=== PATIENT | female | born 1940 ===

== ENCOUNTER 2016-11-21 07:12 | Day surgery (SDC) | payer MEDICARE, OTHER ==
[2016-11-21 07:41] VITALS: BMI 23.3
--- NOTE | 2016-11-21 09:09 | CP.SDSHP ---
Same Day Surgery H & P - History Proposed Procedure: Screening colonoscopy Pre-Op Diagnosis: Screening for colon cancer - Previous Medical/Surgical History Cardiac: Hypertension Previous Surgical History: None - Allergies Allergies: Allergies No Known Allergies Allergy (Verified 09/08/16 09:49) - Physical Exam Vital Signs: Vital Signs 11/21/16 07:41 Temperature 97.5 F L Pulse Rate 88 Respiratory 20 Rate Blood Pressure 124/65 O2 Sat by Pulse 100 Oximetry - {Optional Preform as Required} Abdomen: WNL - Impression Impression: Screening for colorectal cancer Pt. Evaluated Today:Candidate for Anesthesia & Procedure: Yes - Date & Time Date: 11/21/16 Time: 09:21 Short Stay Discharge - Short Stay Discharge Admitting Diagnosis/Reason for Visit: SCREENING Disposition: HOME/ ROUTINE
[2016-11-21] MEDS ORDERED: Propofol 10 mg/ml Inj (20 ML) ONE (09:35)
[2016-11-21 10:13] VITALS: TEMP 97.7
[2016-11-21 10:22] VITALS: O2SAT 100
[2016-11-21 11:06] VITALS: RESP 12
[2016-11-21 11:55] VITALS: BP 103/58; PULSE 68
== END 2016-11-21 11:50 | disposition home or self-care (01) ==
LOC: C.ENDO 07:12
PROVIDERS: ATTEND Internal Medicine Gastroenterology
DX: Z12.11 Encounter for screening for malignant neoplasm of colon (principal); D12.0 Benign neoplasm of cecum; K57.30 Diverticulosis of large intestine without perforation or abscess without bleeding; K64.0 First degree hemorrhoids; I10 Essential (primary) hypertension; E78.5 Hyperlipidemia, unspecified; Z79.899 Other long term (current) drug therapy
CPT/HCPCS: 45380; 88305; J2704

== ENCOUNTER 2017-05-08 08:18 | Day surgery (SDC) | payer MEDICARE ==
--- NOTE | 2017-05-08 08:31 | CP.SDSHP ---
Same Day Surgery H & P - History Proposed Procedure: EGD Pre-Op Diagnosis: Epigastric pain - Previous Medical/Surgical History Cardiac: Hypertension Misc: Other Comments: Hyperlipidemia Previous Surgical History: None - Allergies Allergies: Allergies No Known Allergies Allergy (Verified 09/08/16 09:49) - Current Medications Current Medications: See reconciliation sheet - Physical Exam General Appearance: WD WN female in NAD Vital Signs: See nurse's notes Mental Status: Alert & Oriented x3 Neuro: WNL Heart: WNL Lungs: WNL GI: WNL - {Optional Preform as Required} Abdomen: WNL Short Stay Discharge - Short Stay Discharge Admitting Diagnosis/Reason for Visit: EPIGASTRIC PAIN Disposition: HOME/ ROUTINE
[2017-05-08 08:38] VITALS: BMI 24.4
[2017-05-08] MEDS ORDERED: Propofol 10 mg/ml Inj (20 ML) ONE (09:12)
[2017-05-08] MEDS ORDERED: Lactated Ringer's 500 ML IV ONE (09:12)
[2017-05-08] MEDS ORDERED: Lidocaine Hydrochloride 5 ML INJ ONE (09:20)
[2017-05-08 09:47] VITALS: TEMP 97.7; O2SAT 99
[2017-05-08 09:59] VITALS: RESP 20
[2017-05-08 10:37] VITALS: BP 102/60; PULSE 88
== END 2017-05-08 10:34 | disposition home or self-care (01) ==
LOC: C.ENDO 08:18
PROVIDERS: ATTEND Internal Medicine Gastroenterology
DX: K29.50 Unspecified chronic gastritis without bleeding (principal); K44.9 Diaphragmatic hernia without obstruction or gangrene; R10.13 Epigastric pain; I10 Essential (primary) hypertension; E78.5 Hyperlipidemia, unspecified
CPT/HCPCS: 43239; 88305; 88312; 88342; J2704; J3010; J7120

== ENCOUNTER 2018-04-30 17:22 | Observation (INO) | payer MEDICARE ==
[2018-04-30 17:22] VITALS: BMI 24.4
--- NOTE | 2018-04-30 17:45 | C.PDOC ---
History Of Present Illness REFERRED BY DR ARAGON FOR ADMISSION. PS NEEDS CLEARANCE FOR HYSTERECTOMY TOMORROW BY DR FRANCO. NO BLEEDING. CURRENTLY ASYMPT. EXAM NEG Time Seen by Provider: 04/30/18 17:33 Chief Complaint (Nursing): Medical Clearance History Per: Patient History/Exam Limitations: no limitations Past Medical History Reviewed: Historical Data, Nursing Documentation, Vital Signs Vital Signs: Last Vital Signs Temp 98.6 F 04/30/18 17:30 Pulse 79 04/30/18 17:30 Resp 18 04/30/18 17:30 BP 180/83 H 04/30/18 17:30 Pulse Ox 100 04/30/18 17:30 - Medical History PMH: HTN, Hypercholesterolemia Denies: Chronic Kidney Disease Other Surgeries: Hx of surgeries Family History: States: No Known Family Hx - Social History Hx Alcohol Use: No Hx Substance Use: No - Immunization History Hx Tetanus Toxoid Vaccination: Yes Hx Influenza Vaccination: Yes Hx Pneumococcal Vaccination: Yes Review Of Systems Except As Marked, All Systems Reviewed And Found Negative. Constitutional: Negative for: Fever, Chills Genitourinary: Negative for: Vaginal Discharge, Vaginal Bleeding Physical Exam - Physical Exam Appears: Non-toxic, No Acute Distress Skin: Normal Color, Warm, Dry Head: Atraumatic, Normacephalic Eye(s): bilateral: Normal Inspection Cardiovascular: Rhythm Regular Respiratory: Other (NARD) Gastrointestinal/Abdominal: Normal Exam, Soft, No Tenderness, No Guarding, No Rebound Neurological/Psych: Oriented x3, Normal Speech ED Course And Treatment - Laboratory Results Result Diagrams: 04/30/18 18:54 04/30/18 18:54 ECG: Interpreted By Me ECG Rhythm: Sinus Rhythm ECG Interpretation: Normal Rate From EC O2 Sat by Pulse Oximetry: 100 (RA) Pulse Ox Interpretation: Normal - Radiology CXR: Interpreted by Me, Viewed By Me CXR Interpretation: Yes: No Acute Disease Progress - Re-Evaluation Re-evaluation Note: 04/30/18 17:45 PER SERVICE, DR ARAGON ON VACATION. 04/30/18 17:51 D/W DR BELLAMY C/F PMD WILL ADMIT - Data Reviewed Data Reviewed: Lab, Diagnostic imaging, EKG, Old records Medical Decision Making Medical Decision Making: Plan: --Labs --ECG --CXR --UA --IV Fluids Disposition Counseled Patient/Family Regarding: Studies Performed, Diagnosis - Disposition Disposition: HOSPITALIZED Disposition Time: 17:51 Condition: STABLE Forms: [facility] (Frisian) - POA Present On Arrival: None - Clinical Impression Clinical Impression: Pelvic pain - Scribe Statement The provider has reviewed the documentation as recorded by the Scribe Erica Dent Provider Attestation: All medical record entries made by the Scribe were at my direction and personally dictated by me. I have reviewed the chart and agree that the record accurately reflects my personal performance of the history, physical exam, medical decision making, and the department course for this patient. I have also personally directed, reviewed, and agree with the discharge instructions and disposition.
[2018-04-30] MEDS ORDERED: Sodium Chloride 0.9% 1,000 ML IV ONE (17:53)
--- NOTE | 2018-04-30 18:05 | RAD ---
Date of service: 04/30/2018 HISTORY: Pre Op COMPARISON: 09/08/2016. TECHNIQUE: Chest PA and lateral FINDINGS: LUNGS: No active pulmonary disease. PLEURA: No significant pleural effusion identified. No pneumothorax apparent. CARDIOVASCULAR: No aortic atherosclerotic calcification present. Normal cardiac size. No pulmonary vascular congestion. OSSEOUS STRUCTURES: No significant abnormalities. VISUALIZED UPPER ABDOMEN: Normal. OTHER FINDINGS: None. IMPRESSION: No active disease. No significant interval change compared to the prior examination(s).
[2018-04-30 18:59] LABS: BASO % 0.9 % (0.0-2.0); EOS # 0.2 K/uL (0.0-0.7); EOS % 4.2 % (0.0-4.0); HEMOGLOBIN 12.7 g/dL (11.0-16.0); LYMPH # 1.5 K/uL (1.0-4.3); MEAN CELL VOLUME 90.6 fL (81.0-99.0); MEAN CORPUSCULAR HGB CONC 34.2 g/dL (33.0-37.0); MEAN PLATELET VOLUME 8.9 fL (7.2-11.7); MONO # 0.4 K/uL (0.0-0.8); MONO % 8.7 % (0.0-10.0); NEUT % 48.2 % (50.0-75.0); NRBC % 0.1 % (0.0-2.0); RBC 4.1 Mil/uL (3.80-5.20); RED CELL DISTRIBUTION WIDTH 13.8 % (11.5-14.5); WHITE BLOOD COUNT 4.1 K/uL (4.8-10.8)
[2018-04-30 19:06] LABS: INR 1.2; PROTHROMBIN TIME 12.6 SECONDS (9.7-12.2)
[2018-04-30 19:13] LABS: ALB/GLOB RATIO 1.1 (1.0-2.1); ALT/SGPT 28 U/L (9-52); AST/SGOT 43 U/L (14-36); BLOOD UREA NITROGEN 21 mg/dL (7-17); CALCIUM 10.2 mg/dl (8.6-10.4); GFR NON-AFRICAN AMERICAN > 60
[2018-04-30 20:12] LABS: URINE BILIRUBIN NEGATIVE (NEGATIVE); URINE BLOOD NEGATIVE (NEGATIVE); URINE CLARITY Clear (Clear); URINE COLOR Straw (YELLOW); URINE GLUCOSE (UA) NORMAL (Normal); URINE LEUKOCYTE ESTERASE NEG Leu/uL (Negative); URINE PROTEIN NEGATIVE (NEGATIVE); URINE UROBILINOGEN NORMAL mg/dL (0.2-1.0)
--- NOTE | 2018-04-30 21:02 | CP.PCM.HP ---
History of Present Illness - History of Present Illness History of Present Illness: 78 years old female scheduled for a laparoscopic, robotic hysterectomy wuth bilateral oophorectomy and cystoscopy for a uterine prolapse to-albarran, She is known to have a hypertension, a hypercholesterolemia. She denies any ci garette smoking, any ETOH abuse.. She has no known drug abuse. One son of kidney cancer in his 40's. Her mother had DM, and in her 70's of heart disease, One sister has CAD with PCI and stent insertion at 77 yo, of breast cancer. One brother had DM, suddenly at 61 yo. One niece of ovarian cancer at 35 yo. Meds: 7-Avzmtdiywm-Wgrsutipqi 5-20 mg PO qd 2-Atorvastatin 10 mg PO qd 3- Furosemide 20 mg PO qd PRN for ankle edema. Resting ECG: RSR, WNL. Nuclear stress test on 04/17/2018: No myocardial ischemia induced by exercise, normal LVEF. CBC, U/A, CMP, PT, PTT, CXR: WNL Present on Admission - Present on Admission Any Indicators Present on Admission: No Review of Systems - Reproductive: Female Additional comments: Uterine prolapse. Past Patient History - Infectious Disease Hx of Infectious Diseases: None - Tetanus Immunizations Tetanus Immunization: Unknown - Past Medical History & Family History Past Medical History?: Yes - Past Social History Smoking Status: Never Smoked Alcohol: None Drugs: Denies Home Situation {Lives}: With Family Domestic Violence: Negative - CARDIAC Hx Hypercholesterolemia: Yes Hx Hypertension: Yes - PULMONARY Hx Respiratory Disorders: No - NEUROLOGICAL Hx Neurological Disorder: No - HEENT Hx HEENT Problems: Yes Hx Cataracts: Yes (BILAT.) - RENAL Hx Chronic Kidney Disease: No - ENDOCRINE/METABOLIC Hx Endocrine Disorders: No - HEMATOLOGICAL/ONCOLOGICAL Hx Blood Disorders: No - INTEGUMENTARY Hx Dermatological Problems: No - MUSCULOSKELETAL/RHEUMATOLOGICAL Hx Musculoskeletal Disorders: No Other/Comment: HX: BUNION RIGHT BIG TOE - GASTROINTESTINAL Hx Gastrointestinal Disorders: Yes Hx Hemorrhoids: Yes - GENITOURINARY/GYNECOLOGICAL Hx Genitourinary Disorders: No - PSYCHIATRIC Hx Substance Use: No - SURGICAL HISTORY Hx Surgeries: Yes Hx Cataract Extraction: Yes (BILAT.) Other/Comment: HX: BUNION REMOVED RIGHT BIG TOE - ANESTHESIA Hx Anesthesia: Yes Hx Anesthesia Reactions: No Hx Malignant Hyperthermia: No Meds Allergies/Adverse Reactions: Allergies Allergy/AdvReac Type Severity Reaction Status Date / Time No Known Allergies Allergy Verified 04/25/18 08:02 Physical Exam - Constitutional Appears: Well, No Acute Distress - Head Exam Head Exam: NORMAL INSPECTION - Eye Exam Eye Exam: Normal appearance Pupil Exam: NORMAL ACCOMODATION - ENT Exam ENT Exam: Normal Exam - Neck Exam Neck exam: Positive for: Normal Inspection - Respiratory Exam Respiratory Exam: Clear to Auscultation Bilateral, NORMAL BREATHING PATTERN - Cardiovascular Exam Cardiovascular Exam: REGULAR RHYTHM, Systolic Murmur - GI/Abdominal Exam GI & Abdominal Exam: Normal Bowel Sounds, Soft - Rectal Exam Rectal Exam: Deferred - Exam Exam: NORMAL INSPECTION - Extremities Exam Extremities exam: Positive for: normal inspection - Back Exam Back exam: NORMAL INSPECTION - Neurological Exam Neurological exam: Alert, CN II-XII Intact, Normal Gait, Oriented x3 - Psychiatric Exam Psychiatric exam: Anxious - Skin Skin Exam: Dry, Intact, Normal Color, Warm Results - Vital Signs Recent Vital Signs: Last Vital Signs Temp 98.6 F 04/30/18 20:37 Pulse 71 04/30/18 20:37 Resp 20 04/30/18 20:37 BP 167/88 H 04/30/18 20:37 Pulse Ox 97 04/30/18 20:37 - Labs Result Diagrams: 04/30/18 18:54 04/30/18 18:54 Labs: Laboratory Results - last 24 hr 04/30/18 04/30/18 04/30/18 18:54 18:54 18:54 WBC 4.1 L RBC 4.10 Hgb 12.7 Hct 37.1 MCV 90.6 D MCH 31.0 MCHC 34.2 RDW 13.8 Plt Count 77 L D MPV 8.9 Neut % (Auto) 48.2 L Lymph % (Auto) 38.0 [place] % (Auto) 8.7 Eos % (Auto) 4.2 H Baso % (Auto) 0.9 Neut # (Auto) 2.0 Lymph # (Auto) 1.5 [place] # (Auto) 0.4 Eos # (Auto) 0.2 Baso # (Auto) 0.0 PT 12.6 H INR 1.2 APTT 31 Sodium 139 Potassium 4.1 Chloride 102 Carbon Dioxide 28 Anion Gap 13 BUN 21 H Creatinine 0.7 Est GFR ( Amer) > 60 Est GFR (Non-Af Amer) > 60 Random Glucose 96 Calcium 10.2 Total Bilirubin 0.6 AST 43 H D ALT 28 Alkaline Phosphatase 72 Total Protein 7.5 Albumin 4.0 Globulin 3.5 Albumin/Globulin Ratio 1.1 Urine Color Urine Clarity Urine pH Ur Specific [place] Urine Protein Urine Glucose (UA) Urine Ketones Urine Blood Urine Nitrate Urine Bilirubin Urine Urobilinogen Ur Leukocyte Esterase Urine WBC (Auto) Blood Type Antibody Screen 04/30/18 04/30/18 18:54 20:00 WBC RBC Hgb Hct MCV MCH MCHC RDW Plt Count MPV Neut % (Auto) Lymph % (Auto) [place] % (Auto) Eos % (Auto) Baso % (Auto) Neut # (Auto) Lymph # (Auto) [place] # (Auto) Eos # (Auto) Baso # (Auto) PT INR APTT Sodium Potassium Chloride Carbon Dioxide Anion Gap BUN Creatinine Est GFR ( Amer) Est GFR (Non-Af Amer) Random Glucose Calcium Total Bilirubin AST ALT Alkaline Phosphatase Total Protein Albumin Globulin Albumin/Globulin Ratio Urine Color Straw Urine Clarity Clear Urine pH 6.0 Ur Specific [place] 1.004 Urine Protein Negative Urine Glucose (UA) Normal Urine Ketones Negative Urine Blood Negative Urine Nitrate Negative Urine Bilirubin Negative Urine Urobilinogen Normal Ur Leukocyte Esterase Neg Urine WBC (Auto) < 1 Blood Type A POSITIVE Antibody Screen Negative Assessment & Plan (1) Uterine prolapse Assessment and Plan: For a robotic hysterectomy and bilateral oophorectomy and cystoscopy in AM. Status: Acute (2) Hypertension, well controlled Status: Chronic Decision To Admit - Pt Status Changed To: Hospital Disposition Of: Inpatient - Admit Certification Admit to Inpatient:: After my assessment, the patient will require hospitalization for at least two midnights. This is because of the severity of symptoms shown, intensity of services needed, and/or the medical risk in this patient being treated as an outpatient. - InPatient: Physician Admission Certification:: After my assessments, the patient requires hospitalization for at least 2 midnights. - . Bed Request Type: Regular Admitting Physician: Dariusz Angeles
[2018-04-30] MEDS ORDERED: Phytonadione 10 mg/ml Inj (Adult) SC STA (21:43)
[2018-04-30 22:02] LABS: FUNCTIONING PLTS 65 K/uL; PLT BASE COUNT 70 K/uL; PLT(ADP) 5 K/uL
[2018-05-01] MEDS ORDERED: MethylPREDNISolone 40 mg Vial IVP ONE (04:30)
[2018-05-01 07:43] LABS: BASO % 0.1 % (0.0-2.0); EOS # 0.1 K/uL (0.0-0.7); EOS % 0.8 % (0.0-4.0); HEMOGLOBIN 13.4 g/dL (11.0-16.0); LYMPH # 0.8 K/uL (1.0-4.3); MEAN CELL VOLUME 90.4 fL (81.0-99.0); MEAN CORPUSCULAR HEMOGLOBIN 31.4 pg (27.0-31.0); MEAN CORPUSCULAR HGB CONC 34.7 g/dL (33.0-37.0); MEAN PLATELET VOLUME 8.9 fL (7.2-11.7); MONO # 0.2 K/uL (0.0-0.8); MONO % 2.5 % (0.0-10.0); NEUT % 85.6 % (50.0-75.0); RBC 4.27 Mil/uL (3.80-5.20); RED CELL DISTRIBUTION WIDTH 13.9 % (11.5-14.5)
[2018-05-01 08:03] LABS: INR 1.2; PROTHROMBIN TIME 13.1 SECONDS (9.7-12.2)
[2018-05-01] MEDS ORDERED: Vasopressin 20 Units/ml Inj ONE (09:06)
[2018-05-01] MEDS ORDERED: Bupivacaine 0.25% 20 ML INJ IJ ONE (09:06)
[2018-05-01] MEDS ORDERED: cefOXitin IV 2 gm in Dextrose 2 GM/50 ML BAG IVPB ONE (09:06)
[2018-05-01] MEDS ORDERED: Midazolam 2 MG/2 ML VIAL ONE (10:10)
[2018-05-01] MEDS ORDERED: Propofol 10 mg/ml Inj (20 ML) ONE (10:10)
[2018-05-01] MEDS ORDERED: BUPIVACAINE 0.125%/0.9% NACL 600 ML IJ ONE (11:00)
[2018-05-01] MEDS ORDERED: Bupivacaine HCl 0.5% PF (30 ml) Inj ONE (11:19)
[2018-05-01] MEDS ORDERED: Rocuronium 10 mg/ml (5 ml) ONE (11:40)
[2018-05-01] MEDS ORDERED: Clindamycin 2% Vaginal Cream(40 gm) ONE (12:07)
[2018-05-01] MEDS ORDERED: Neostigmine Methylsulfate 3mg/3ml Syringe IV ONE (12:55)
--- NOTE | 2018-05-01 12:56 | PCM.SURG1 ---
Surgeon's Initial Post Op Note - Surgeon's Notes Surgeon: Dr. Car Manager Cafe: Dr. Wolf Type of Anesthesia: General Endo Anesthesia Administered By: Pre-Operative Diagnosis: 78 yo with postmenpomenopausal bleeding, chronic pelvic pain, cystocele grade III Operative Findings: Av uterus 10, multiple adhesion, cystocele grade III Post-Operative Diagnosis: Same Operation Performed: Total Laparoscopy Hysterectomy, RSO, JANNETTE, Cystoscopy , anterior Repair Specimen/Specimens Removed: uTERUS, CERVIX, R tube and ovary , Vesicavaginal fascia Estimated Blood Loss: EBL {In ML}: 10 Blood Products Given: N/A Drains Used: No Drains Post-Op Condition: Good Date of Surgery/Procedure: 05/01/18 Time of Surgery/Procedure: 13:00
[2018-05-01] MEDS ORDERED: Oxycodone/Acetaminophen 5/325 mg Tab PO PRN (13:00)
[2018-05-01] MEDS ORDERED: HYDROmorphone 0.5 mg/0.5 ml ISec IVP PRN (13:03)
--- NOTE | 2018-05-01 18:02 | CP.PCM.CON ---
History of Present Illness - History of Present Illness History of Present Illness: 78 yo woman, who was admitted for Transplant Immunologist surgery for vaginal prolapse, found to have low platelet count. She has had persistently low platelets, even as an outpatient. The work up for the low platelets did not reveal any abnormalities include normal vitamin B12 level, hepatitis profiles, normal autoimmune work up and normal flow cytometry. She received 1 unit of single donor platelets and had a good response with no post op complications. Past Patient History - Infectious Disease Hx of Infectious Diseases: None - Tetanus Immunizations Tetanus Immunization: Unknown - Past Medical History & Family History Past Medical History?: Yes - Past Social History Smoking Status: Never Smoked Alcohol: None Drugs: Denies Home Situation {Lives}: With Family Domestic Violence: Negative - CARDIAC Hx Hypercholesterolemia: Yes Hx Hypertension: Yes - PULMONARY Hx Respiratory Disorders: No - NEUROLOGICAL Hx Neurological Disorder: No - HEENT Hx HEENT Problems: Yes Hx Cataracts: Yes (BILAT.) - RENAL Hx Chronic Kidney Disease: No - ENDOCRINE/METABOLIC Hx Endocrine Disorders: No - HEMATOLOGICAL/ONCOLOGICAL Hx Blood Disorders: No - INTEGUMENTARY Hx Dermatological Problems: No - MUSCULOSKELETAL/RHEUMATOLOGICAL Hx Musculoskeletal Disorders: No Other/Comment: HX: BUNION RIGHT BIG TOE - GASTROINTESTINAL Hx Gastrointestinal Disorders: Yes Hx Hemorrhoids: Yes - GENITOURINARY/GYNECOLOGICAL Hx Genitourinary Disorders: No - PSYCHIATRIC Hx Substance Use: No - SURGICAL HISTORY Hx Surgeries: Yes Hx Cataract Extraction: Yes (BILAT.) Other/Comment: HX: BUNION REMOVED RIGHT BIG TOE - ANESTHESIA Hx Anesthesia: Yes Hx Anesthesia Reactions: No Hx Malignant Hyperthermia: No Meds Allergies/Adverse Reactions: Allergies Allergy/AdvReac Type Severity Reaction Status Date / Time No Known Allergies Allergy Verified 04/25/18 08:02 - Medications Medications: Current Medications Docusate Sodium (Colace) 100 mg PO BID [facility] BUPIVACAINE 0.125%/0.9% NACL (Bupivacaine-Ns 0.125% On-Q Food Services Coordinator) 600 mls @ 4 mls/hr IJ ONCE ONE Stop: 05/07/18 16:59 Last Admin: 05/01/18 13:02 Dose: 0 mls Cefoxitin Sodium (Mefoxin Iv 1 Gm Duplex) 1 gm in 50 mls @ 50 mls/hr IVPB Q8H [facility]; Protocol Stop: 05/02/18 10:59 Ibuprofen (Motrin Tab) 600 mg PO TID [facility] Last Admin: 05/01/18 17:46 Dose: Not Given Losartan Potassium (Cozaar) 50 mg PO DAILY [facility] Last Admin: 05/01/18 11:03 Dose: Not Given Oxycodone/Acetaminophen (Percocet 5/325 Mg Tab) 1 tab PO Q6 PRN PRN Reason: Pain, moderate (4-7) Stop: 05/04/18 13:01 Results - Vital Signs Recent Vital Signs: Last Vital Signs Temp 97.6 F 05/01/18 14:15 Pulse 58 L 05/01/18 14:15 Resp 14 05/01/18 14:15 BP 134/76 05/01/18 14:15 Pulse Ox 100 05/01/18 14:15 - Labs Result Diagrams: 05/01/18 07:31 04/30/18 18:54 Labs: Laboratory Results - last 24 hr 04/30/18 04/30/18 04/30/18 18:54 18:54 18:54 WBC 4.1 L RBC 4.10 Hgb 12.7 Hct 37.1 MCV 90.6 D MCH 31.0 MCHC 34.2 RDW 13.8 Plt Count 77 L D MPV 8.9 Neut % (Auto) 48.2 L Lymph % (Auto) 38.0 [place] % (Auto) 8.7 Eos % (Auto) 4.2 H Baso % (Auto) 0.9 Neut # (Auto) 2.0 Lymph # (Auto) 1.5 [place] # (Auto) 0.4 Eos # (Auto) 0.2 Baso # (Auto) 0.0 PT 12.6 H INR 1.2 APTT 31 Fibrinogen Plt Function Assay Sodium 139 Potassium 4.1 Chloride 102 Carbon Dioxide 28 Anion Gap 13 BUN 21 H Creatinine 0.7 Est GFR ( Amer) > 60 Est GFR (Non-Af Amer) > 60 Random Glucose 96 Calcium 10.2 Total Bilirubin 0.6 AST 43 H D ALT 28 Alkaline Phosphatase 72 Total Protein 7.5 Albumin 4.0 Globulin 3.5 Albumin/Globulin Ratio 1.1 Urine Color Urine Clarity Urine pH Ur Specific [place] Urine Protein Urine Glucose (UA) Urine Ketones Urine Blood Urine Nitrate Urine Bilirubin Urine Urobilinogen Ur Leukocyte Esterase Urine WBC (Auto) Blood Type Antibody Screen 04/30/18 04/30/18 04/30/18 18:54 20:00 21:53 WBC RBC Hgb Hct MCV MCH MCHC RDW Plt Count MPV Neut % (Auto) Lymph % (Auto) [place] % (Auto) Eos % (Auto) Baso % (Auto) Neut # (Auto) Lymph # (Auto) [place] # (Auto) Eos # (Auto) Baso # (Auto) PT INR APTT Fibrinogen Plt Function Assay 65 Sodium Potassium Chloride Carbon Dioxide Anion Gap BUN Creatinine Est GFR ( Amer) Est GFR (Non-Af Amer) Random Glucose Calcium Total Bilirubin AST ALT Alkaline Phosphatase Total Protein Albumin Globulin Albumin/Globulin Ratio Urine Color Straw Urine Clarity Clear Urine pH 6.0 Ur Specific [place] 1.004 Urine Protein Negative Urine Glucose (UA) Normal Urine Ketones Negative Urine Blood Negative Urine Nitrate Negative Urine Bilirubin Negative Urine Urobilinogen Normal Ur Leukocyte Esterase Neg Urine WBC (Auto) < 1 Blood Type A POSITIVE Antibody Screen Negative 05/01/18 05/01/18 07:31 07:31 WBC 7.0 D RBC 4.27 Hgb 13.4 Hct 38.6 MCV 90.4 MCH 31.4 H MCHC 34.7 RDW 13.9 Plt Count 98 L D MPV 8.9 Neut % (Auto) 85.6 H Lymph % (Auto) 11.0 L [place] % (Auto) 2.5 Eos % (Auto) 0.8 Baso % (Auto) 0.1 Neut # (Auto) 6.0 Lymph # (Auto) 0.8 L [place] # (Auto) 0.2 Eos # (Auto) 0.1 Baso # (Auto) 0.0 PT 13.1 H INR 1.2 APTT 33 Fibrinogen 206 Plt Function Assay Sodium Potassium Chloride Carbon Dioxide Anion Gap BUN Creatinine Est GFR ( Amer) Est GFR (Non-Af Amer) Random Glucose Calcium Total Bilirubin AST ALT Alkaline Phosphatase Total Protein Albumin Globulin Albumin/Globulin Ratio Urine Color Urine Clarity Urine pH Ur Specific [place] Urine Protein Urine Glucose (UA) Urine Ketones Urine Blood Urine Nitrate Urine Bilirubin Urine Urobilinogen Ur Leukocyte Esterase Urine WBC (Auto) Blood Type Antibody Screen Assessment & Plan (1) Thrombocytopenia Assessment and Plan: 78 yo woman with mild asymptomatic thrombocytopenia, work up done as an outpatient not revealing any abnormality. The likely etiology of the mildly decreased platelet count is hypersplenism, given boderline spleen size,low fibrinogen, mild elevation in her PT, requires underlying subclinical liver disease to be ruled out. No hematologic intervention required at this time. Will work up the coagulation abnormalities as an outpatient Status: Acute
[2018-05-01] MEDS: cefOXitin IV 1 gm in Dextrose 1 GM/50 ML BAG IVPB SCH (18:35)
--- NOTE | 2018-05-01 18:38 | CP.PCM.PN ---
Subjective - Date & Time of Evaluation Date of Evaluation: 05/01/18 Time of Evaluation: 18:36 - Subjective Subjective: Patient had surgery this AM. Had platelet transfusion. No complaint. For discharge in AM. Objective - Vital Signs/Intake and Output Vital Signs (last 24 hours): Temp Pulse Resp BP Pulse Ox 97.4 F L 75 20 130/73 93 L 05/01/18 15:00 05/01/18 15:00 05/01/18 15:00 05/01/18 15:00 05/01/18 15:00 Intake and Output: 05/01/18 05/01/18 06:59 18:59 Intake Total 710 1350 Output Total 300 Balance 710 1050 - Medications Medications: Current Medications Docusate Sodium (Colace) 100 mg PO BID [facility] BUPIVACAINE 0.125%/0.9% NACL (Bupivacaine-Ns 0.125% On-Q Plan Examiner) 600 mls @ 4 mls/hr IJ ONCE ONE Stop: 05/07/18 16:59 Last Admin: 05/01/18 13:02 Dose: 0 mls Cefoxitin Sodium (Mefoxin Iv 1 Gm Duplex) 1 gm in 50 mls @ 50 mls/hr IVPB Q8H [facility]; Protocol Stop: 05/02/18 10:59 Ibuprofen (Motrin Tab) 600 mg PO TID [facility] Last Admin: 05/01/18 17:46 Dose: Not Given Losartan Potassium (Cozaar) 50 mg PO DAILY [facility] Last Admin: 05/01/18 11:03 Dose: Not Given Oxycodone/Acetaminophen (Percocet 5/325 Mg Tab) 1 tab PO Q6 PRN PRN Reason: Pain, moderate (4-7) Stop: 05/04/18 13:01 - Labs Labs: 05/01/18 07:31 04/30/18 18:54 PT 13.1 SECONDS (9.7-12.2) H 05/01/18 07:31 INR 1.2 05/01/18 07:31 APTT 33 SECONDS (21-34) 05/01/18 07:31 - Constitutional Appears: Well, No Acute Distress - Head Exam Head Exam: NORMAL INSPECTION - Eye Exam Eye Exam: Normal appearance Pupil Exam: NORMAL ACCOMODATION - ENT Exam ENT Exam: Normal Exam - Neck Exam Neck Exam: Normal Inspection - Respiratory Exam Respiratory Exam: Clear to Ausculation Bilateral, NORMAL BREATHING PATTERN - Cardiovascular Exam Cardiovascular Exam: REGULAR RHYTHM - GI/Abdominal Exam GI & Abdominal Exam: Soft, Hypoactive Bowel Sounds - Rectal Exam Rectal Exam: Deferred - Extremities Exam Extremities Exam: Normal Inspection - Back Exam Back Exam: NORMAL INSPECTION - Neurological Exam Neurological Exam: Alert, Awake, Oriented x3 - Psychiatric Exam Psychiatric exam: Anxious - Skin Skin Exam: Dry, Intact, Normal Color, Warm Assessment and Plan (1) Uterine prolapse Assessment & Plan: S/p laparoscopic hysterectomy and bilateral oophorectomy. Doing well. Status: Acute (2) Hypertension, well controlled Status: Chronic
[2018-05-02] MEDS: cefOXitin IV 1 gm in Dextrose 1 GM/50 ML BAG IVPB SCH ×2 (02:10→11:04)
[2018-05-02 07:47] LABS: HEMOGLOBIN 11.7 g/dL (11.0-16.0); MEAN CELL VOLUME 90.8 fL (81.0-99.0); MEAN CORPUSCULAR HEMOGLOBIN 31.5 pg (27.0-31.0); MEAN CORPUSCULAR HGB CONC 34.7 g/dL (33.0-37.0); MEAN PLATELET VOLUME 8.9 fL (7.2-11.7); RBC 3.72 Mil/uL (3.80-5.20); RED CELL DISTRIBUTION WIDTH 14.1 % (11.5-14.5); WHITE BLOOD COUNT 6.3 K/uL (4.8-10.8)
--- NOTE | 2018-05-02 18:47 | CP.PCM.PN ---
Subjective - Date & Time of Evaluation Date of Evaluation: 05/02/18 Time of Evaluation: 18:45 - Subjective Subjective: doing well, pain controlled, diet tolerated, good urine output but has not gotten oob Objective - Vital Signs/Intake and Output Vital Signs (last 24 hours): Temp Pulse Resp BP Pulse Ox 98.1 F 74 20 138/75 95 05/02/18 16:00 05/02/18 16:00 05/02/18 16:00 05/02/18 16:00 05/02/18 16:00 Intake and Output: 05/02/18 05/02/18 06:59 18:59 Intake Total 250 700 Output Total 750 1500 Balance -500 -800 - Medications Medications: Current Medications Docusate Sodium (Colace) 100 mg PO BID [facility] Last Admin: 05/02/18 17:34 Dose: Not Given BUPIVACAINE 0.125%/0.9% NACL (Bupivacaine-Ns 0.125% On-Q Systems Testing Laboratory Technician) 600 mls @ 4 mls/hr IJ ONCE ONE Stop: 05/07/18 16:59 Last Admin: 05/01/18 13:02 Dose: 0 mls Ibuprofen (Motrin Tab) 600 mg PO TID [facility] Last Admin: 05/02/18 14:08 Dose: Not Given Losartan Potassium (Cozaar) 50 mg PO DAILY [facility] Last Admin: 05/02/18 09:51 Dose: 50 mg Oxycodone/Acetaminophen (Percocet 5/325 Mg Tab) 1 tab PO Q6 PRN PRN Reason: Pain, moderate (4-7) Stop: 05/04/18 13:01 - Labs Labs: 05/02/18 07:36 04/30/18 18:54 PT 13.1 SECONDS (9.7-12.2) H 05/01/18 07:31 INR 1.2 05/01/18 07:31 APTT 33 SECONDS (21-34) 05/01/18 07:31 - Constitutional Appears: Well, No Acute Distress - Respiratory Exam Respiratory Exam: NORMAL BREATHING PATTERN - Cardiovascular Exam Cardiovascular Exam: REGULAR RHYTHM - GI/Abdominal Exam GI & Abdominal Exam: Normal Bowel Sounds Assessment and Plan - Assessment and Plan (Free Text) Assessment: postop day 1 TLH BSO CYSTOSCOPY Plan: PROGRESSING NORMALLy need to ambulate repeat cbc/bmp discharge tomorrow morning if stable
--- NOTE | 2018-05-02 23:21 | CP.PCM.PN ---
Subjective - Date & Time of Evaluation Date of Evaluation: 05/02/18 Time of Evaluation: 19:30 - Subjective Subjective: Patient is doing well. Afebrile. Better appetite. For discharge home in AM. Objective - Vital Signs/Intake and Output Vital Signs (last 24 hours): Temp Pulse Resp BP Pulse Ox 98.1 F 74 20 138/75 95 05/02/18 16:00 05/02/18 16:00 05/02/18 16:00 05/02/18 16:00 05/02/18 16:00 Intake and Output: 05/02/18 05/03/18 18:59 06:59 Intake Total 700 Output Total 1500 Balance -800 - Medications Medications: Current Medications Docusate Sodium (Colace) 100 mg PO BID REPLACED BY [facility] Last Admin: 05/02/18 17:34 Dose: Not Given BUPIVACAINE 0.125%/0.9% NACL (Bupivacaine-Ns 0.125% On-[employer]) 600 mls @ 4 mls/hr IJ ONCE ONE Stop: 05/07/18 16:59 Last Admin: 05/01/18 13:02 Dose: 0 mls Ibuprofen (Motrin Tab) 600 mg PO TID REPLACED BY [facility] Last Admin: 05/02/18 18:00 Dose: Not Given Losartan Potassium (Cozaar) 50 mg PO DAILY REPLACED BY [facility] Last Admin: 05/02/18 09:51 Dose: 50 mg Oxycodone/Acetaminophen (Percocet 5/325 Mg Tab) 1 tab PO Q6 PRN PRN Reason: Pain, moderate (4-7) Stop: 05/04/18 13:01 - Labs Labs: 05/02/18 07:36 04/30/18 18:54 PT 13.1 SECONDS (9.7-12.2) H 05/01/18 07:31 INR 1.2 05/01/18 07:31 APTT 33 SECONDS (21-34) 05/01/18 07:31 - Constitutional Appears: Well, No Acute Distress - Head Exam Head Exam: NORMAL INSPECTION - Eye Exam Eye Exam: Normal appearance - ENT Exam ENT Exam: Normal Exam - Neck Exam Neck Exam: Normal Inspection - Respiratory Exam Respiratory Exam: Clear to Ausculation Bilateral, NORMAL BREATHING PATTERN - Cardiovascular Exam Cardiovascular Exam: REGULAR RHYTHM - GI/Abdominal Exam GI & Abdominal Exam: Soft, Normal Bowel Sounds - Rectal Exam Rectal Exam: Deferred - Extremities Exam Extremities Exam: Normal Inspection - Back Exam Back Exam: NORMAL INSPECTION - Neurological Exam Neurological Exam: Alert, Awake, Normal Gait, Oriented x3 - Psychiatric Exam Psychiatric exam: Anxious - Skin Skin Exam: Dry, Intact, Normal Color, Warm Assessment and Plan (1) Uterine prolapse Assessment & Plan: S/p Hysterectomy and bilateral oophorectomy POD#2. Status: Acute (2) Hypertension, well controlled Assessment & Plan: Controlled with Losartan. Patient states that she was on no medication for hypertension as an outpatient and her HPTN was diet controlled. Status: Chronic
[2018-05-03 06:55] LABS: BASO % 0.7 % (0.0-2.0); EOS # 0.3 K/uL (0.0-0.7); EOS % 5.2 % (0.0-4.0); HEMOGLOBIN 13.1 g/dL (11.0-16.0); LYMPH # 1.9 K/uL (1.0-4.3); LYMPH % 33.6 % (20.0-40.0); MEAN CELL VOLUME 91.8 fL (81.0-99.0); MEAN CORPUSCULAR HEMOGLOBIN 31.7 pg (27.0-31.0); MEAN CORPUSCULAR HGB CONC 34.5 g/dL (33.0-37.0); MEAN PLATELET VOLUME 9.2 fL (7.2-11.7); MONO # 0.6 K/uL (0.0-0.8); MONO % 10.7 % (0.0-10.0); NEUT # 2.8 K/uL (1.8-7.0); NEUT % 49.8 % (50.0-75.0); RBC 4.15 Mil/uL (3.80-5.20); RED CELL DISTRIBUTION WIDTH 13.6 % (11.5-14.5); WHITE BLOOD COUNT 5.5 K/uL (4.8-10.8)
[2018-05-03 07:16] LABS: BLOOD UREA NITROGEN 17 mg/dL (7-17); GFR NON-AFRICAN AMERICAN > 60
[2018-05-03 08:06] VITALS: BP 153/69; PULSE 67; RESP 20; TEMP 98.2; O2SAT 96
--- NOTE | 2018-05-07 17:50 | CARD ---
APPROVED REPORT Date of service: 04/30/2018 EKG Measurement Heart [id number] <Conclusion> Normal sinus rhythm Moderate voltage criteria for LVH, may be normal variant Borderline ECG
--- NOTE | 2018-05-07 22:16 | OP ---
PROCEDURE DATE: 05/01/2018 PREOPERATIVE DIAGNOSIS: A 78-year-old female with postmenopausal bleeding, chronic pelvic pain, and a cystocele on grade III. POSTOPERATIVE DIAGNOSES: A 78-year-old female with postmenopausal bleeding, chronic pelvic pain, and a cystocele on grade III. PROCEDURES: Total laparoscopic hysterectomy, [id number], lysis of adhesions, cystoscopy and anterior repair. SURGEON: Manisha Car MD SOLAR LAB TECHNICIAN: Gris Wolf MD TYPE OF ANESTHESIA: General anesthesia with endotracheal tube. FINDINGS: Anteverted uterus, 10-weeks gestation, noted to have multiple adhesions and a cystocele grade III. OPERATIVE FINDINGS: Again mentioning with anteverted uterus, noted to have multiple adhesions, normal cystoscopy and jets seen bilaterally post total laparoscopic hysterectomy. SPECIMENS: Uterus with cervix as well as right tube and ovary and vaginal epithelium from the cystocele repair. CLINICAL NOTE: The patient, Zane, is a 78-year-old patient, known to have chronic pelvic pain and progressively postmenopausal bleeding. The patient requested definite management with the hysterectomy after discussing all the medical management. The patient was informed other risk factors, which included infection, bleeding, damage to surrounding organs and tissues, the reoccurrence of chronic pelvic pain due to the reformation of adhesion. Risk factors were explained, but not limited to. An informed consent was then obtained. All questions were answered. DESCRIPTION OF PROCEDURE: In that particular instance, she was then taken to the operating room under general anesthesia and placed in dorsal lithotomy position. The patient was prepped and draped in a normal sterile fashion. Beginning at the vagina, a Knutson catheter was inserted under sterile condition and left inside for the remainder of the case. A weighted speculum was placed into the vagina. The anterior lip of the cervix was grasped with a single-tooth tenaculum. It was then dilated with Evgeny dilators. The medium-sized VCare device was utilized and inserted in order to provide the means to manipulate the uterus. In that particular instance, attention was then turned to the abdomen, which 0.5 bupivacaine solution was used for infiltration of all the ports. Beginning in the subumbilical area, the skin was infiltrated with 2 mL of bupivacaine solution. A 5-mm incision was made to the skin within a 11-blade, and the optic trocar was utilized under direct visualization and entered into the peritoneal cavity. CO2 gas maximal pressure of 15 mmHg. The scope was then reintroduced. It was confirmed entered directly. Examination of peritoneal cavity revealed that she had multiple adhesions, and there were no signs of injury from the entry and noted she had like I mentioned again multiple adhesions. The patient was then placed in Trendelenburg. Two more 5-mm trocars were placed, one in the left and one in the right. The standard technique was taking to avoid the epigastric vessel. All trocars were placed under direct visualization, and no underlying injury was noted. The uterus was then held below and revealed that she had some adhesions anteriorly. It was also noted she had multiple adhesions in the right side. She also had a beginning on the right side working distally along the length of the fallopian tube. The mesosalpinx was exposed by lifting the tube and the ovary towards the anterior abdominal wall. The mesosalpinx was then clamped, ligated with a LigaSure device working along the length of the tubes and towards the cornua. Once the level of the cornua was reached, the tube was ligated and then cut. Attention was then turned to the other side. On the right side, the infundibular pelvic ligament was ligated three times and cut with the LigaSure. Excellent hemostasis was noted. On the left side, mesosalpinx was clamped, ligated and cut with the LigaSure. Excellent hemostasis was noted. The round ligaments were then ligated and cut. Following this, the anterior leaf of the broad ligament was then taken down on the right side dissecting towards the peritoneal reflection at the base of the bladder and adjacent to the cervix. The same process was then repeated in the left side such both sides met, the anterior leaf had been approximately skeletonized. Once the bladder was appropriately dissected free from the lower anterior uterine segment and the tissue was skeletonized, the uterine arteries were bilaterally clamped and ligated, pedicles were checked, and hemostasis at the level of the cuff of the anterior manipulator. The vaginal vault was excised circumferential with a monopolar hook. Upon completion, the uterus and the cervix and the right ovary and tube were delivered through the vagina and sent to Pathology. A sterile glove was then placed into the vagina to form a pneumatic seal, and all the pedicles as well as the cut edges were examined. Hemostasis was achieved with the bipolar cautery. The vaginal vault was closed with 0 Vicryl. Following the vaginal wall closure, an inspection of all areas was made to ensure hemostasis. All ports were removed under direct visualization. The skin was closed with a 4-0 Monocryl. Attention was then turned to the vagina. At that point, the vaginal vault was closed. It was noted that she had a very large cystocele which was a grade III. So, in that particular instance, a weighted speculum was placed into the vagina, and diluted vasopressin was infiltrated under the anterior vaginal mucosa midline. A small incision was made in the vagina mucosa, and the Metzenbaum scissors were then used to dissect the mucosa of the cystocele and cut the vaginal mucosa in the midline. The cut edges were then held and spread laterally with series of Allis clamp. The bladder was dissected away and along the lateral edges with a combination of sharp and blunt dissection exposing the vesicular vaginal space. A series of 2-0 Vicryl interrupted sutures were placed sequentially along the lateral folds of the vesicular vaginal space and brought together to tuck the bladder bag while simultaneously bringing the lateral vaginal tissue together. Excessive vaginal mucosa was then trimmed, and the vagina was then closed with a running locked 0 Vicryl. The Knutson catheter was then removed, and a 70-degree cystoscopy was then inserted into the bladder. The bladder was intact and normal looking with no evidence of trauma or perforation. Bilateral ureteral jets were visualized. The bladder was then drained through the sheath of the cystoscopy, and then the cystoscopy was then removed, and a Knutson catheter was re-inserted. At the end of the procedure, all sponges, instruments and sharps were count and correct. The estimated blood loss was approximately 10 mL. The Knutson catheter was draining clear urine. The patient was then taken to the recovery room in stable condition. Manisha Car MD
--- NOTE | 2018-05-08 08:43 | CP.PCM.DIS ---
Provider - Provider Date of Admission: 04/30/18 19:27 Attending physician: Dariusz Angeles MD Primary care physician: Dr LAURYN ZAYAS. Consults: Dr Car ( OB) and Dr Garcia ( Hem Onc). Time Spent in preparation of Discharge (in minutes): 45 Diagnosis - Discharge Diagnosis (1) Uterine prolapse Status: Acute (2) Hypertension, well controlled Status: Chronic Hospital Course - Lab Results Lab Results: Most Recent Lab Values WBC 5.5 K/uL (4.8-10.8) 05/03/18 06:48 RBC 4.15 Mil/uL (3.80-5.20) 05/03/18 06:48 Hgb 13.1 g/dL (11.0-16.0) 05/03/18 06:48 Hct 38.1 % (34.0-47.0) 05/03/18 06:48 MCV 91.8 fL (81.0-99.0) 05/03/18 06:48 MCH 31.7 pg (27.0-31.0) H 05/03/18 06:48 MCHC 34.5 g/dL (33.0-37.0) 05/03/18 06:48 RDW 13.6 % (11.5-14.5) 05/03/18 06:48 Plt Count 90 K/uL (130-400) L 05/03/18 06:48 MPV 9.2 fL (7.2-11.7) 05/03/18 06:48 Neut % (Auto) 49.8 % (50.0-75.0) L 05/03/18 06:48 Lymph % (Auto) 33.6 % (20.0-40.0) 05/03/18 06:48 [place] % (Auto) 10.7 % (0.0-10.0) H 05/03/18 06:48 Eos % (Auto) 5.2 % (0.0-4.0) H 05/03/18 06:48 Baso % (Auto) 0.7 % (0.0-2.0) 05/03/18 06:48 Neut # (Auto) 2.8 K/uL (1.8-7.0) 05/03/18 06:48 Lymph # (Auto) 1.9 K/uL (1.0-4.3) 05/03/18 06:48 [place] # (Auto) 0.6 K/uL (0.0-0.8) 05/03/18 06:48 Eos # (Auto) 0.3 K/uL (0.0-0.7) 05/03/18 06:48 Baso # (Auto) 0.0 K/uL (0.0-0.2) 05/03/18 06:48 PT 13.1 SECONDS (9.7-12.2) H 05/01/18 07:31 INR 1.2 05/01/18 07:31 APTT 33 SECONDS (21-34) 05/01/18 07:31 Fibrinogen 206 mg/dL (200-400) 05/01/18 07:31 Plt Function Assay 65 K/uL 04/30/18 21:53 Sodium 142 mmol/L (132-148) 05/03/18 06:48 Potassium 4.0 mmol/L (3.6-5.2) 05/03/18 06:48 Chloride 104 mmol/L (98-107) 05/03/18 06:48 Carbon Dioxide 31 mmol/L (22-30) H 05/03/18 06:48 Anion Gap 11 (10-20) 05/03/18 06:48 BUN 17 mg/dL (7-17) 05/03/18 06:48 Creatinine 0.7 mg/dL (0.7-1.2) 05/03/18 06:48 Est GFR ( Amer) > 60 05/03/18 06:48 Est GFR (Non-Af Amer) > 60 05/03/18 06:48 Random Glucose 103 mg/dL (65-105) 05/03/18 06:48 Calcium 9.0 mg/dl (8.6-10.4) 05/03/18 06:48 Total Bilirubin 0.6 mg/dL (0.2-1.3) 04/30/18 18:54 AST 43 U/L (14-36) H D 04/30/18 18:54 ALT 28 U/L (9-52) 04/30/18 18:54 Alkaline Phosphatase 72 U/L (38-126) 04/30/18 18:54 Total Protein 7.5 g/dL (6.3-8.3) 04/30/18 18:54 Albumin 4.0 g/dL (3.5-5.0) 04/30/18 18:54 Globulin 3.5 gm/dL (2.2-3.9) 04/30/18 18:54 Albumin/Globulin Ratio 1.1 (1.0-2.1) 04/30/18 18:54 Urine Color Straw (YELLOW) 04/30/18 20:00 Urine Clarity Clear (Clear) 04/30/18 20:00 Urine pH 6.0 (5.0-8.0) 04/30/18 20:00 Ur Specific [place] 1.004 (1.003-1.030) 04/30/18 20:00 Urine Protein Negative mg/dL (NEGATIVE) 04/30/18 20:00 Urine Glucose (UA) Normal mg/dL (Normal) 04/30/18 20:00 Urine Ketones Negative mg/dL (NEGATIVE) 04/30/18 20:00 Urine Blood Negative (NEGATIVE) 04/30/18 20:00 Urine Nitrate Negative (NEGATIVE) 04/30/18 20:00 Urine Bilirubin Negative (NEGATIVE) 04/30/18 20:00 Urine Urobilinogen Normal mg/dL (0.2-1.0) 04/30/18 20:00 Ur Leukocyte Esterase Neg Cole/uL (Negative) 04/30/18 20:00 Urine WBC (Auto) < 1 /hpf (0-5) 04/30/18 20:00 Blood Type A POSITIVE 04/30/18 18:54 Antibody Screen Negative 04/30/18 18:54 - Hospital Course Hospital Course: 78 yo female, known to have a hypertension, a hypercholesterolemia, was hospitalized for a laparoscopic total hysterectomy, bilateral oophorectomy, a cystoscopy, anterior repair of a cystocele. Dr Car performed the procedure on 05/01/2018. The patient was given Losartan 50 mg PO qd to control her BP. She was evaluated by Dr Garcia for a mild thrombocytopenia. She was transfused one unit of single donor platelet during surgery. The patient did well postoperatively, without any bleeding. She tolerated her regular diet. She was discharged home on 05/03/2018 in a stable condition, with only analgesics, Cephalexin 500mg PO Bid for 7 days and no antihypertensive medications ( She said her BP and hypercholesterolemia were controlled by diet). She will have a follow up with Dr Car next week and with Dr Zayas in 2 weeks. - Date & Time of H&P Date of H&P: 04/30/18 Discharge Exam - Head Exam Head Exam: NORMAL INSPECTION - Eye Exam Eye Exam: Normal appearance Pupil Exam: NORMAL ACCOMODATION - ENT Exam ENT Exam: Normal Exam - Neck Exam Neck exam: Normal Inspection - Respiratory Exam Respiratory Exam: Clear to PA & Lateral, UNREMARKABLE - Cardiovascular Exam Cardiovascular Exam: REGULAR RHYTHM - GI/Abdominal Exam GI & Abdominal Exam: Normal Bowel Sounds, Unremarkable - Rectal Exam Rectal Exam: Deferred - Extremities Exam Extremities exam: normal inspection - Back Exam Back exam: NORMAL INSPECTION - Neurological Exam Neurological exam: Alert, Normal Gait, Oriented x3 - Psychiatric Exam Psychiatric exam: Anxious - Skin Skin Exam: Cyanosis, Dry, Normal Color, Warm Discharge Plan - Discharge Medications Prescriptions: Cephalexin [Keflex] 500 mg PO BID 7 Days #14 capsule - Follow Up Plan Condition: STABLE Disposition: HOME/ ROUTINE Instructions: Hysterectomy, Abdominal or Laparoscopic Surgery Clinical Quality Measures - CQM - Heart Failure Will be discharged to: Home Follow Up Date (must be within 7 days from discharge): 05/10/18 Follow Up Time: 14:00 - Date & Time of Discharge Summary Date of Discharge Summary: 05/08/18 Time of Discharge Summary: 08:48
== END 2018-05-03 14:05 | disposition home or self-care (01) ==
LOC: C.ER 17:22 → C.3T 19:27
PROVIDERS: ADMIT Internal Medicine Cardiovascular Disease; ATTEND Internal Medicine Cardiovascular Disease
DX: D25.2 Subserosal leiomyoma of uterus (principal); I10 Essential (primary) hypertension; N95.0 Postmenopausal bleeding; G89.29 Other chronic pain; D73.1 Hypersplenism; N81.4 Uterovaginal prolapse, unspecified; N85.4 Malposition of uterus
CPT/HCPCS: 36415; 36430; 57240; 58552; 71046; 80048; 80053; 81001; 85025; 85027; 85384; 85576; 85610; 85730; 86850; 86900; 86920; 88305; 88307; 93005; 96365; 96366; 96372; 99284; C2615; G0378; J0694; J1170; J2250; J2405; J2704; J2710; J2920; J3010; J3430; J7030; P9053

== ENCOUNTER 2018-09-10 11:19 | Outpatient (CLI) | payer MEDICARE, OTHER | END 2018-09-10 11:20 | disposition home or self-care (01) | LOC: C.MAMMO 11:20 | DX: Z12.31 Encounter for screening mammogram for malignant neoplasm of breast (principal) ==

== ENCOUNTER 2018-09-10 11:28 | Outpatient (CLI) | payer MEDICARE, OTHER | END 2018-09-10 11:29 | disposition home or self-care (01) | LOC: C.RADIC 11:28 ==